=== PATIENT | female | born 1965 | race Caucasian/White ===

== ENCOUNTER → 2016-07-04 | Outpatient (CLI) | payer BC ==
[2016-07-04 15:13] LABS: FERRITIN 127.7 ng/ml (8.0-388.0)
== END | disposition home or self-care (01) ==
LOC: C.LAB 12:51
DX: R79.0 Abnormal level of blood mineral (principal)

== ENCOUNTER → 2017-01-20 | Outpatient (CLI) | payer BC ==
[2017-01-20 09:35] LABS: BASO % 0.5 %; BASO ABS # 0.02 K/uL (0-0.2); COMPLETE YES; EOS % 9.7 %; HEMATOCRIT 40.9 % (37-47); IG% 0.3 %; LYMPH % 22.2 %; LYMPH ABS # 0.87 K/uL (1.2-3.4); MEAN CELL VOLUME 97.1 fL (80-100); MEAN CORPUSCULAR HEMOGLOBIN 34.2 pg (25-34); MEAN CORPUSCULAR HGB CONC 35.2 g/dl (32-36); MEAN PLATELET VOLUME 9.9 fL (7.4-10.4); MONO % 7.4 %; NEUT % 59.9 %; PLATELET COUNT 193 K/uL (130-400); RED BLOOD COUNT 4.21 M/uL (4.2-5.4); WHITE BLOOD COUNT 3.92 K/uL (4.8-10.8)
[2017-01-20 10:18] LABS: FERRITIN 92.6 ng/ml (8.0-388.0)
== END | disposition home or self-care (01) ==
LOC: C.LAB1850 08:31
DX: E83.119 Hemochromatosis, unspecified (principal); Z13.220 Encounter for screening for lipoid disorders; Z13.1 Encounter for screening for diabetes mellitus

== ENCOUNTER 2019-01-28 16:25 | Inpatient (IN) ==
[2019-01-28] MEDS ORDERED: ONDANSETRON INJ 2 MG/ML 2 ML VIAL IV PRN (17:59)
[2019-01-28] MEDS ORDERED: MAGNESIUM HYDROXIDE SUSP 30 ML UDC PO PRN (17:59)
--- NOTE | 2019-01-28 18:04 | History & Physical Report ---
Date of Service January 28, 2019 Assessment & Plan (1) Cellulitis and abscess of right leg: Failed outpt tx Start ceftriaxone and monitor CBC, PRP pending Ortho c/s pending I&D with cx sent from PCP's office, HIM for cx results WCC pending (2) DVT prophylaxis: Ambulation, will hold rx in case of need for OR History of Present Illness Primary Care Provider: Phuc Edwards Jr, DO 53 y/o F who was a direct admission from orthopedics for R LE cellulitis with abscess, failed outpt tx. Pt states she shaved her legs on Monday. Monday AM she noted 2 areas of redness on her R LE, one on the calf and one closer to her knee. Pt is working with derm for severe eczema and frequently has areas of redness, so she was not concerned at that time. She noted another area of redness on her L upper thigh the next day. She notes it had the same appearance as the other two, but given it was located on the back of her thigh, she had no noticed it the same day as the others. She also noted much increased redness and swelling of her R calf on . [facility] and was [facility] Bact[facility]. Her redness continued to spread over the next few days, so she [facility]. Abx were changed to clinda and she was advised to f/u with PCP on Monday. She saw her PCP today and was found to have an area of induration that was drained in the office. Dr. Edwards called ortho for an appt and she was seen by Dr. Aguilar today who advised for inpt tx with IV abx given above course. Pt was given an IM dose of rocephin by Dr. Edwards. She does feel that since the interventions today that her R calf redness and swelling is maybe 10% improved. She is having increased drainage from the site now. The area continues to be hot and painful, but slightly better. Pt denies fever, SOB, chest pain, abd pain, n/v/c/d. Pt states she had a recent L elbow cellulitis that developed a bursitis. This cleared with a course of cipro. She was put on a three week prednisone course for the bursitis, which she has since completed. Allergies Allergy/AdvReac Type Severity Reaction Status Date / Time doxycycline Allergy Mild Verified 01/28/19 14:16 animal dander Allergy Unknown ASTHMA Verified 11/16/17 12:30 INDUCED Home Medications Home Medications Medication Instructions Recorded Confirmed Type hydroxyzine HCl 10 mg PO HS 01/28/19 01/28/19 History montelukast 10 mg PO PM 01/28/19 01/28/19 History triamcinolone acetonide [Nasacort] 2 spray INTRANASAL DAILY 01/28/19 01/28/19 History Past Med/Surg History Medical History Asthma Atopic dermatitis Hemochromatosis Surgical History Hx of section Social History Preferred Language: Bur[place]ian Segregator Required: No Beliefs That Will Affect Care: None Current Living Situation: Family Feels Safe at Home: Yes Smoking Status: Never smoker Second Hand Exposure: No ; Hx Alcohol Use: Yes (rare) Alcohol type: hard liquor Hx Substance Use: No Review of Systems Review of Systems: Pertinent positives and negatives reviewed in HPI--all others negative Physical Exam Constitutional: WD/WN, vitals as above Eyes: normal visual frances by confrontation and + anicteric sclerae Neck: normal visual inspection and trachea midline Respiratory: normal respiratory effort, lungs clear to auscultation Cardiovascular: Rate/Rhythm: regular rate and regular rhythm Gastrointestinal (Abdomen): Inspection/Auscultation: abdomen not distended Percussion/Palpation: abdomen soft; abdomen nontender Musculoskeletal: Head/Neck/Chest: normocephalic and head atraumatic mild e deb at infection site, peripheral pulses intact Skin: no rashes, warm and dry R anterior calf with area of redness that is outlined in marker, area of fluctuance and purulent drainage noted. No bleeding noted R medial inferior knee with small area outlined in marker, appears to be healing L upper posterior thigh with small area not outlined, also appears to be healing Neurologic: awake; not confused Speech / Cognition: normal speech Psychiatric: A+Ox3, euthymic affect Results & Data Vital Signs (Past 12 Hours) Vital Signs Temp Pulse Resp BP Pulse Ox 01/28/19 16:53 36.5 C 98 H 16 128/80 97 01/28/19 16:47 37.3 C 98 H 18 128/80 97 Code Status & VTE Plan VTE Prophylaxis Plan VTE Prophylaxis will be ordered: Yes PG Care Time/CCT Total # of Minutes Spent Total Time Spent with Patient: Total time spent is greater than 50% in coordination of care (as documented) at patient's floor/unit and/or counseling patient:
[2019-01-28 18:23] LABS: Basophils # (auto) 0.02 K/uL (0-0.2); Basophils % (auto) 0.3 %; Eosinophils # (auto) 0.31 K/uL (0-0.5); Eosinophils % (auto) 4.3 %; Hematocrit (blood only) 36.3 % (37-47); Hemoglobin 12.6 g/dL (12.0-16.0); Immature Granulocytes # (auto) 0.01 K/uL (0.00-0.02); Immature Granulocytes % (auto) 0.1 %; Lymphocytes # (auto) 0.75 K/uL (1.2-3.4); Lymphocytes % (auto) 10.4 %; Mean Corpuscular Hemoglobin 33.1 pg (25-34); Mean Corpuscular Hgb Conc 34.7 g/dL (32-36); Mean Corpuscular Volume 95.3 fL (80-100); Mean Platelet Volume 9.2 fL (7.4-10.4); Monocytes % (auto) 9.7 %; Neutrophils # (auto) 5.43 K/uL (1.4-6.5); Neutrophils % (auto) 75.2 %; Platelet Count 214 K/uL (130-400); RDW Coefficient of Variation 12.2 % (11.5-14.5); RDW Standard Deviation 41.8 fL (36.4-46.3); Red Blood Count 3.81 M/uL (4.2-5.4); White Blood Count 7.22 K/uL (4.8-10.8)
[2019-01-28] MEDS: ACETAMINOPHEN 325 MG TAB PO PRN (18:24)
[2019-01-28] MEDS: cefTRIAXone SODIUM 1,000 MG in DEXTROSE 5% 50 ML IV SCH (18:45)
[2019-01-28 18:46] LABS: BUN Creatinine Ratio 20.4 (10-20); Calcium 9.2 mg/dl (8.5-10.1); Creatinine Clr Calc Pharmacy 66.1 ml/min; Est GFR (African American) 105.3; Est GFR (Non-African American) 90.8; Magnesium 2.2 mg/dl (1.8-2.4); Phosphorus 3.1 mg/dl (2.5-4.9); Potassium 4.8 mmol/L (3.5-5.1)
[2019-01-28] MEDS: hydrOXYzine HCl 10 MG TAB PO SCH (20:38)
[2019-01-28] MEDS: MONTELUKAST SODIUM 10 MG TABLET PO SCH (20:38)
[2019-01-28] MEDS ORDERED: KETOROLAC 30 MG/ML VIAL IV PRN (21:15)
[2019-01-28] MEDS ORDERED: MoRPHine SULFATE 2 MG/ML CARP IV PRN (21:16)
[2019-01-29] MEDS: TRIAMCINOLONE ACET NASAL SPRAY 10.8ML BTL SCH (08:41)
--- NOTE | 2019-01-29 12:00 | Orthopedic Consultation ---
Date of Consultation January 29, 2019 Assessment & Plan (1) Cellulitis and abscess of right leg: Agree with current management with parenteral antibiotics. She is making progress. I will continue to follow and look for any areas of fluctuance that become isolated and in need of formal surgical decompression. I explained the role of surgery to the patient once again. She is in agreement to proceed for now. I will evaluate her tomorrow. I would have her n.p.o. at midnight and to the morning exam in case we need to do the I&D. To be complete, I will add a tibial x-ray today to be performed before tomorrow. She can be out of bed as tolerated. She should minimize activity if she develops increasing pain or swelling. History of Present Illness Attending Physician: Karl Charles History of Present Illness Treva is a 53-year-old female who developed widespread cellulitis in the right pretibial region. She was seen in our clinic yesterday and recommended for inpatient treatment parenteral antibiotics. Today she reports that her symptoms are improved. She denies any fevers or chills. She continues to have some drainage from the punctate wound in the middle aspect of her tibia. More purulent material has been draining today. Overall she feels like there is progress in regards to reduce swelling and pain in the area. She is encouraged by this. She denies any previous episodes of this. Her primary care did perform a lancing procedure with a needle and did express some purulent material through the punctate wound. This was sent for culture. We are consult in regards to whether she needs a formal incision and drainage. I recommended at least 24 hours of antibiotics and we appreciate the hospitalist service for managing her. Allergies Allergy/AdvReac Type Severity Reaction Status Date / Time doxycycline Allergy Mild Verified 01/28/19 14:16 animal dander Allergy Unknown ASTHMA Verified 11/16/17 12:30 INDUCED Home Medications Home Medications Medication Instructions Recorded Confirmed Type hydroxyzine HCl 10 mg PO HS 01/28/19 01/28/19 History montelukast 10 mg PO PM 01/28/19 01/28/19 History triamcinolone acetonide [Nasacort] 2 spray INTRANASAL DAILY 01/28/19 01/28/19 History Patient History Medical History Asthma Atopic dermatitis Hemochromatosis Surgical History Hx of section Social History Preferred Language: Indonesian [employer] Education Teacher Required: No Beliefs That Will Affect Care: None Current Living Situation: Family Feels Safe at Home: Yes Smoking Status: Never smoker Second Hand Exposure: No ; Hx Alcohol Use: Yes (rare) Alcohol type: hard liquor Hx Substance Use: No Review of Systems Review of Systems: All systems reviewed & are unremarkable except as noted in HPI & below Physical Exam Physical Exam: No acute distress, lying comfortably in the bed. She is alert and oriented and pleasant. Examination of the right leg demonstrates the previously noted area of erythema and induration. She does have some wrinkles and scaling of the skin there is evidence of decompression and reduction of the edema. The punctate wound does have some expressible drainage. This drainage is purulent in nature. I decompressed what I could across the middle aspect on the anterior side of the tibia and over the anterior compartment. She has only mild tenderness which is a distinct improvement from yesterday. Erythema does expand distally on the medial side of her leg down this. She does have some receding of the area markings in the most superior lateral areas. There is some fluctuance particularly over the anterior compartment that I did decompressed manually. There is still some evident. She has full active range of motion of her ankle and knee. Results & Data Vital Signs (Past 12 Hours) Vital Signs Temp Pulse Resp BP Pulse Ox 01/29/19 07:35 36.5 C 88 16 99/60 L 94 Laboratory Results Laboratory Tests 01/28/19 01/28/19 18:13 18:13 ESR 61 H C-Reactive Protein 6.53 H PG Care Time/CCT Total # of Minutes Spent Total Time Spent with Patient: Total time spent is greater than 50% in coordination of care (as documented) at patient's floor/unit and/or counseling patient:
--- NOTE | 2019-01-29 13:22 | XRay Report ---
XR tibia fibula RT 2V CLINICAL HISTORY: Pretibial cellulitis. Evaluate for bone involvement. COMPARISON: None FINDINGS: Soft tissue swelling overlying the mid shaft of the right tibia is noted. There is no evid ence for osteomyelitis. No fracture is noted. No radiopaque foreign body is identified. Alignment of the right knee and ankle is anatomic. IMPRESSION: Soft tissue swelling overlying the midshaft of the right tibia. No evidence for osteomyel itis. No fracture. Electronically signed by: Josh Barcenas M.D. 01/29/2019 1:20 PM
[2019-01-29] MEDS: cefTRIAXone SODIUM 1,000 MG in DEXTROSE 5% 50 ML IV SCH (17:33)
[2019-01-29] MEDS: ACETAMINOPHEN 325 MG TAB PO PRN (17:40)
[2019-01-29] MEDS ORDERED: VANCOMYCIN CONSULT ACTIVE PRN (19:15)
[2019-01-29] MEDS ORDERED: VANCOMYCIN HCL 750 MG in SODIUM CHLORIDE 0.9% 500 ML IV SCH (19:15)
[2019-01-29] MEDS ORDERED: VANCOMYCIN HCL 1,250 MG in SODIUM CHLORIDE 0.9% 250 ML IV ONE (19:30)
[2019-01-29] MEDS: hydrOXYzine HCl 10 MG TAB PO SCH (19:54)
[2019-01-29] MEDS: MONTELUKAST SODIUM 10 MG TABLET PO SCH (19:54)
--- NOTE | 2019-01-29 22:51 | Hospitalist Progress Note ---
Date of Service January 29, 2019 Assessment & Plan (1) Cellulitis and abscess of right leg: Failed outpt tx Start ceftriaxone and monitor WBC is normal. culture is shoiwing signs of staph aureus, patient has no risk factors for MRSA. However, some erythema noted outside delineated area. Will place patient on vancomycin. (2) DVT prophylaxis: Ambulation, will hold rx in case of need for OR Subjective Patient reports feeling better. Patient states her pain in her affected leg has improved. She is able to bear weight on it as well. Patiet states yesterday she couldnt bear any weight as the pain was unbearable. Review of Systems Review of Systems: All systems reviewed & are unremarkable except as noted in HPI & below Physical Exam Physical Exam: Constitutional: WD/WN, vitals as above Eyes: normal visual frances by confrontation and + anicteric sclerae Neck: normal visual inspection and trachea midline Respiratory: normal respiratory effort, lungs clear to auscultation Cardiovascular: Rate/Rhythm: regular rate and regular rhythm Gastrointestinal (Abdomen): Inspection/Auscultation: abdomen not distended Percussion/Palpation: abdomen soft; abdomen nontender Musculoskeletal: Head/Neck/Chest: normocephalic and head atraumatic mild edema at infection site, peripheral pulses intact Skin: no rashes, warm and dry R anterior calf with area of redness that is outlined in marker, soem areas appear outside area that had been marked, area of fluctuance and purulent drainage noted. No bleeding noted R medial inferior knee with small area outlined in marker, appears to be healing L upper posterior thigh with small area not outlined, also appears to be healing Neurologic: awake; not confused Speech / Cognition: normal speech Psychiatric: A+Ox3, euthymic affect Results & Data Vital Signs (Past 12 Hours) Vital Signs Temp Pulse Resp BP Pulse Ox 01/29/19 15:10 37.3 C 78 16 105/61 95 PG Care Time/CCT Total # of Minutes Spent Total Time Spent with Patient: Total time spent is greater than 50% in coordination of care (as documented) at patient's floor/unit and/or counseling patient:
[2019-01-30 07:47] LABS: Est GFR (Non-African American) 101.8
[2019-01-30] MEDS ORDERED: VANCOMYCIN HCL 750 MG in SODIUM CHLORIDE 0.9% 250 ML IV SCH (08:00)
[2019-01-30 08:32] LABS: Hematocrit (blood only) 36.6 % (37-47); Hemoglobin 12.7 g/dL (12.0-16.0); Mean Corpuscular Hemoglobin 33.1 pg (25-34); Mean Corpuscular Hgb Conc 34.7 g/dL (32-36); Mean Corpuscular Volume 95.3 fL (80-100); Mean Platelet Volume 9.2 fL (7.4-10.4); Platelet Count 218 K/uL (130-400); RDW Standard Deviation 41.7 fL (36.4-46.3); Red Blood Count 3.84 M/uL (4.2-5.4); White Blood Count 4.57 K/uL (4.8-10.8)
[2019-01-30] MEDS: TRIAMCINOLONE ACET NASAL SPRAY 10.8ML BTL SCH (08:33)
--- NOTE | 2019-01-30 09:28 | Pharmacy Report ---
Pharmacy Abx Initial Consult - Date of Service January 30, 2019 - Pharmacy Dosing Scope Date of Consult: 01/29/19 Consultation requested by: Dr. Charles Pharmacy is consulted to initiate Vancomycin IV dosing therapy, order appropriate labs and adjust drug dose/frequency. - Subjective The patient is a 53 year old F admitted on 01/28/19 16:25. - Objective Height: 5 ft 1 in Weight: 55.45 kg Vital Signs (Past 12hrs): Vital Signs Temp Pulse Resp BP Pulse Ox 01/30/19 06:57 37.0 C 79 18 109/70 94 01/29/19 22:47 36.7 C 76 16 109/70 95 Lab Results (24hrs): Laboratory Tests (24 Hours) 01/30/19 01/30/19 06:58 06:55 WBC 4.57 L Creatinine 0.67 Est Cr Clr Drug Dosing 75.0 - Risk Factors for Resistance * Antimicrobial use within the last 90 days - failed outpatient Bactrim and Clindamycin for current cellulitis. - Assessment & Plan Assessment 53 year old F admitted for R lower extremity cellulitis with abscess. Wound culture growing staph aureus that is Sensitive to Vanco, Bactrim, Clindamycin. However, pt was on oral Bactrim and Clinda [employer] for few days for this cellulitis but had no improvement. She is currently ordered Vancomycin and Rocephin. Plan Vancomycin IV * Estimated PK Parameters: Vd 0.7 L/kg, Kj 0.059 hr-1, t1/2 12 hr * Loading dose: Vanc 1250 mg IV x 1 dose given yesterday around 8 PM (23 mg/kg) * Maintenance dose: 750 mg IV (13.5 mg/kg) every 12 hours was ordered to start this AM. * Goal trough level for Cellulitis: ~15 mcg/mL * Trough Vanc level ordered for 02/01 before dose at 8 AM after 4 maintenance doses. Pharmacy will continue to follow and will adjust dose/frequency as necessary. Thank you.
--- NOTE | 2019-01-30 13:21 | Orthopedic Progress Note ---
Date of Service January 30, 2019 Assessment & Plan (1) Cellulitis and abscess of right leg: Continues to make progress with parenteral antibiotics and elevation. I recommend continuing the same. I will evaluate her tomorrow. She may benefit from irrigation debridement if that indurated area on the lateral aspect of the involved segment does not resolve. I am hopeful it does. If possible, hold her as n.p.o. until the a.m. of exam. Disposition: When indurated area that receives and she is on a stable oral antibody, will plan for outpatient therapy Subjective Treva states that she has had no changes in her symptoms. She thinks the leg is certainly less painful than when she came into the hospital. Continues to drain. She did state that she had a reaction to the vancomycin that was started today. Otherwise she is encouraged by the progress. On review of systems, she denies fevers, chills, nausea nor vomiting Physical Exam Physical Exam: She is supine in bed, no acute distress, appears well. Examination right lower extremity: The leg demonstrates significant reduction in the edema and erythema on the anterior aspect of her leg. She is full active range of motion of her ankle and knee. She is neurovascular intact. She still has some expressible drainage through the punctate wound however is much less today. There is some induration that persists just lateral to that wound on the anterior tibial crest. This may require some I&D. I think there is a chance that it may resolve somewhat with continued antibiotics and elevation Results & Data Vital Signs (Past 12 Hours) Vital Signs Temp Pulse Resp BP Pulse Ox 01/30/19 06:57 37.0 C 79 18 109/70 94 PG Care Time/CCT Total # of Minutes Spent Total Time Spent with Patient: Total time spent is greater than 50% in coordination of care (as documented) at patient's floor/unit and/or counseling patient:
[2019-01-30] MEDS ORDERED: ENOXAPARIN INJ 40 MG/0.4 ML SYR SQ SCH (16:00)
[2019-01-30] MEDS: cefTRIAXone SODIUM 1,000 MG in DEXTROSE 5% 50 ML IV SCH (17:46)
[2019-01-30] MEDS: MONTELUKAST SODIUM 10 MG TABLET PO SCH (21:13)
[2019-01-30] MEDS: hydrOXYzine HCl 10 MG TAB PO SCH (21:13)
--- NOTE | 2019-01-30 23:00 | Hospitalist Progress Note ---
Date of Service January 30, 2019 Assessment & Plan (1) Cellulitis and abscess of right leg: Failed outpt tx Start ceftriaxone and monitor WBC is normal. culture is shoiwing signs of staph aureus, patient has no risk factors for MRSA. Culture shows MSSA. will continue ceftriaxone. As patient developed red man syndrome will stop vancomycin. i explained to patient that this is not an allergy but infusion rate related (2) DVT prophylaxis: Ambulation, will hold rx in case of need for OR (3) Red man syndrome: As noted above. Subjective 53 yo female reports feeling better. Her pain in her affected lower extremity has improved. She also reports having a breakout when vancomycin was started. Her neck and face became red. Review of Systems Review of Systems: All systems reviewed & are unremarkable except as noted in HPI & below Physical Exam Physical Exam: Constitutional: WD/WN, vitals as above Eyes: normal visual frances by confrontation and + anicteric sclerae Neck: normal visual inspection and trachea midline Respiratory: normal respiratory effort, lungs clear to auscultation Cardiovascular: Rate/Rhythm: regular rate and regular rhythm Gastrointestinal (Abdomen): Inspection/Auscultation: abdomen not distended Percussion/Palpation: abdomen soft; abdomen nontender Musculoskeletal: Head/Neck/Chest: normocephalic and head atraumatic mild edema at infection site, peripheral pulses intact Skin: erythema noted on neck and face, warm and dry R anterior calf with area of redness that is outlined in marker, seems less red today, decreased area of fluctuance and purulent drainage noted. No bleeding noted R medial inferior knee with small area outlined in marker, appears to be healing L upper posterior thigh with small area not outlined, also appears to be healing Neurologic: awake; not confused Speech / Cognition: normal speech Psychiatric: A+Ox3, euthymic affect Results & Data Vital Signs (Past 12 Hours) Vital Signs Temp Pulse Resp BP Pulse Ox 01/30/19 14:57 36.9 C 76 18 121/75 95 PG Care Time/CCT Total # of Minutes Spent Total Time Spent with Patient: Total time spent is greater than 50% in coordination of care (as documented) at patient's floor/unit and/or counseling patient:
[2019-01-31 06:15] LABS: Creatinine Clr Calc Pharmacy 68.8 ml/min; Est GFR (African American) 110.5; Est GFR (Non-African American) 95.4
[2019-01-31] MEDS: TRIAMCINOLONE ACET NASAL SPRAY 10.8ML BTL SCH (08:34)
--- NOTE | 2019-01-31 12:03 | Orthopedic Progress Note ---
Date of Service January 31, 2019 Assessment & Plan (1) Cellulitis and abscess of right leg: Continues to make progress with parenteral antibiotics and elevation. I recommend continuing the same. At this point, I do not think her can course will be improved by formal incision and debridement. Most of the indurated areas have been decompressed with appropriate antibiotics and elevation. I will continue to follow her while she is an inpatient. I discussed that she can follow-up with us as an outpatient on all as-needed basis. Okay to discharge when stable oral regimen is deemed acceptable by the primary team Please contact with any questions or worsening of her condition. Subjective Catheter today reports no significant increase in pain. She is tolerating the ceftriaxone. Her appetite is good. No other complaints Physical Exam Physical Exam: She appears well, she is in no acute distress. She is lying in her bed. Examination right lower extremity: The punctate wound was undressed. There continues to be seropurulent discharge. The surrounding area of erythema and edema is significantly improved. There is no significant subcutaneous edema. The erythema is receding drastically. The indurated area just lateral to the punctate wound and anterior crest of the tibia is significantly softened today. Results & Data Vital Signs (Past 12 Hours) Vital Signs Temp Pulse Pulse Resp BP Pulse Ox 01/31/19 11:13 36.8 C 80 12 118/80 95 01/31/19 07:28 36.7 C 72 17 108/78 96 PG Care Time/CCT Total # of Minutes Spent Total Time Spent with Patient: Total time spent is greater than 50% in coordination of care (as documented) at patient's floor/unit and/or counseling patient:
[2019-01-31] MEDS ORDERED: ENOXAPARIN INJ 40 MG/0.4 ML SYR SQ SCH (16:00)
[2019-01-31] MEDS: cefTRIAXone SODIUM 1,000 MG in DEXTROSE 5% 50 ML IV SCH (18:46)
[2019-01-31] MEDS: MONTELUKAST SODIUM 10 MG TABLET PO SCH (20:29)
[2019-01-31] MEDS: hydrOXYzine HCl 10 MG TAB PO SCH (20:29)
--- NOTE | 2019-01-31 23:14 | Hospitalist Progress Note ---
Date of Service January 31, 2019 Assessment & Plan (1) Cellulitis and abscess of right leg: Failed outpt tx Start ceftriaxone and monitor WBC is normal. culture is shoiwing signs of staph aureus, patient has no risk factors for MRSA. Culture shows MSSA. will continue ceftriaxone. will discharge on oral antibiotics tomorrow on 02/01 As patient developed red man syndrome will stop vancomycin. i explained to patient that this is not an allergy but infusion rate related. (2) DVT prophylaxis: Ambulation, will hold rx in case of need for OR (3) Red man syndrome: This has improved. The redness has decreased. will continue to monitor. Explained to patient that this is not an allergy. Subjective 53 yo female reports her swelling has improved. and her pain and redness has also improved. Review of Systems Review of Systems: All systems reviewed & are unremarkable except as noted in HPI & below Physical Exam Physical Exam: Constitutional: WD/WN, vitals as above Eyes: normal visual frances by confrontation and + anicteric sclerae Neck: normal visual inspection and trachea midline Respiratory: normal respiratory effort, lungs clear to auscultation Cardiovascular: Rate/Rhythm: regular rate and regular rhythm Gastrointestinal (Abdomen): Inspection/Auscultation: abdomen not distended Percussion/Palpation: abdomen soft; abdomen nontender Musculoskeletal: Head/Neck/Chest: normocephalic and head atraumatic mild edema at infection site, peripheral pulses intact Skin: decreased erythema noted on neck and face, warm and dry R anterior calf with decreased area of tenderness, seems less red today, decreased area of fluctuance and purulent drainage noted. No bleeding noted R medial inferior knee with small area outlined in marker, appears to be healing L upper posterior thigh with small area not outlined, also appears to be healing Neurologic: awake; not confused Speech / Cognition: normal speech Psychiatric: A+Ox3, euthymic affect Results & Data Vital Signs (Past 12 Hours) Vital Signs Temp Pulse Resp BP Pulse Ox 01/31/19 15:41 37 C 77 16 123/81 97 PG Care Time/CCT Total # of Minutes Spent Total Time Spent with Patient: Total time spent is greater than 50% in coordination of care (as documented) at patient's floor/unit and/or counseling patient:
[2019-02-01] MEDS ORDERED: VANCOMYCIN TROUGH ONE (07:30)
[2019-02-01 08:11] LABS: Est GFR (Non-African American) 92.3
[2019-02-01] MEDS: TRIAMCINOLONE ACET NASAL SPRAY 10.8ML BTL SCH (08:32)
--- NOTE | 2019-02-11 21:48 | Discharge Summary ---
Date of Service February 01, 2019 Admission HPI Per Admitting Provider 53 y/o F who was a direct admission from orthopedics for R LE cellulitis with abscess, failed outpt tx. Pt states she shaved her legs on Monday. Monday AM she noted 2 areas of redness on her R LE, one on the calf and one closer to her knee. Pt is working with derm for severe eczema and frequently has areas of redness, so she was not concerned at that time. She noted another area of redness on her L upper thigh the next day. She notes it had the same appearance as the other two, but given it was located on the back of her thigh, she had no noticed it the same day as the others. She also noted much increased redness and swelling of her R calf on . [facility] and [facility]. Her redness continued to spread over the next few days, so [facility]. Abx were changed to clinda and she was advised to f/u with PCP on Monday. She saw her PCP today and was found to have an area of induration that was drained in the office. Dr. Edwards called ortho for an appt and she was seen by Dr. Aguilar today who advised for inpt tx with IV abx given above course. Pt was given an IM dose of rocephin by Dr. Edwards. She does feel that since the interventions today that her R calf redness and swelling is maybe 10% improved. She is having increased drainage from the site now. The area continues to be hot and painful, but slightly better. Pt denies fever, SOB, chest pain, abd pain, n/v/c/d. Pt states she had a recent L elbow cellulitis that developed a bursitis. This cleared with a course of cipro. She was put on a three week prednisone course for the bursitis, which she has since completed. Principal Diagnosis cellulitis Discharge Exam Constitutional: WD/WN, vitals as above Eyes: normal visual frances by confrontation and + anicteric sclerae Neck: normal visual inspection and trachea midline Respiratory: normal respiratory effort, lungs clear to auscultation Cardiovascular: Rate/Rhythm: regular rate and regular rhythm Gastrointestinal (Abdomen): Inspection/Auscultation: abdomen not distended Percussion/Palpation: abdomen soft; abdomen nontender Musculoskeletal: Head/Neck/Chest: normocephalic and head atraumatic mild edema at infection site, peripheral pulses intact Skin: decreased erythema noted on neck and face, warm and dry R anterior calf with decreased area of tenderness, seems less red today, no area of fluctuance nor purulent drainage noted. No bleeding noted R medial inferior knee with small area outlined in marker, appears to be healing L upper posterior thigh with small area not outlined, also appears to be healing Neurologic: awake; not confused Speech / Cognition: normal speech Psychiatric: A+Ox3, euthymic affect Discharge Data Allergies Allergy/AdvReac Type Severity Reaction Status Date / Time doxycycline Allergy Mild Unknown Verified 01/31/19 04:14 animal dander Allergy Unknown ASTHMA Verified 11/16/17 12:30 INDUCED Consultations 01/28/19 17:59 Consult Orthopedic Surgery Routine 01/28/19 18:50 Consult Health Information Management Routine Hospital Course (1) Cellulitis and abscess of right leg: Failed outpt tx Start ceftriaxone and monitor WBC is normal. culture is shoiwing signs of staph aureus, patient has no risk factors for MRSA. Culture shows MSSA. will continue ceftriaxone. will discharge on oral antibiotics tomorrow on 02/01 As patient developed red man syndrome will stop vancomycin. i explained to patient that this is not an allergy but infusion rate related. Patient was discharged on oral antibiotics for 7 more days (2) DVT prophylaxis: Ambulation, will hold rx in case of need for OR (3) Red man syndrome: This has improved. The redness has decreased. will continue to monitor. Explained to patient that this is not an allergy. Total Time Total Time Spent Total Time Spent (In Minutes): 31 Total Time Includes: Examination of the Patient, Discharge Planning and Medication Reconciliation Discharge Plan Discharge Items Patient Disposition: Home - Self-Care Reason For Visit: LOWER EXTREMITY ABCESS & CELLULITIONS Discharge Diagnosis: Lower extremity abscess and cellulits Activity: Resume your previous activity Non-emergency contact: Primary Care Provider Call non-emergency contact if: you have any medication questions Follow-up/Referrals: Hung Aguilar [Surgeon] - 02/07/19 11:00 am (A follow up appt. has been made for you with Dr. Aguilar on 02/07 at 11:00am. ) Phuc Edwards Jr, [Primary Care Provider] - 02/06/19 11:00 am (A follow up appt. has been made for you on 02/06 at 11:00am with Dr. Edwards.) Diet: Regular Addtl Attending Provider Instructions: You were seen for cellulitis and an abscess. will recommend antibiotics for 7 more days, May consider stopping sooner at next week's appointment as per Dr. EDWARDS OR Dr. Aguilar. Pending Studies at Discharge: No Stand-Alone Forms: My [facility] Medications and DC Order Prescriptions: Continued montelukast 10 mg PO PM RF: 0 hydroxyzine HCl 10 mg Tablet 10 mg PO HS RF: 0 triamcinolone acetonide [Nasacort] 55 mcg Aerosol,[place] 2 spray INTRANASAL DAILY RF: 0 Discharge Orders: Discharge Order (Routine); Ordered 02/01/19 Ordered By: Karl Charles Admission Data Admit Date/Time: 01/28/19 16:25 Attending Provider: Karl Charles Admit Provider: Marilia Ybarra Primary Care Provider: Phuc Edwards Jr Other Providers: Hung Aguilar Other Interventions: Discharge Summary Assessment (RN) Last Done: 02/01/19 12:03 DC Date/Time DO NOT enter until pt leaves facility: 02/01/19 12:51
== END 2019-02-01 12:51 | disposition home or self-care (01) | DRG 603 ==
LOC: 3N 16:25 → SUATTDRO 16:25
DX: L03.115 Cellulitis of right lower limb; L53.9 Erythematous condition, unspecified